=== PATIENT | male | born 1970 | race Two or more races ===

== ENCOUNTER 2018-11-18 11:19 | Emergency (ER) | payer SELFPAY ==
[~2018-11-18] VITALS: Ht 165.1 cm; Wt 100.0 kg
[2018-11-18] MEDS ORDERED: MORPHINE SULFATE 4 MG/ML CPJ (NOT FOR IM USE) IV ONE ×4 (14:15→19:45)
[2018-11-18] MEDS ORDERED: SODIUM CHLORIDE 0.9% 1,000 ML IV ONE (14:45)
[2018-11-18] MEDS ORDERED: PROPOFOL 200MG/20ML VIAL IV ONE ×2 (16:00→16:45)
[2018-11-18] MEDS ORDERED: KETAMINE HCL 50 MG/ML 10ML IV ONE (16:00)
[2018-11-18 20:22] VITALS: BP 153/98
== END 2018-11-18 19:40 | disposition short-term general hospital (02) ==
LOC: ER 11:19
DX: S43.014A Anterior dislocation of right humerus, initial encounter (principal); Z88.0 Allergy status to penicillin; W18.2XXA Fall in (into) shower or empty bathtub, initial encounter; Y93.89 Activity, other specified; Y92.89 Other specified places as the place of occurrence of the external cause; Y99.8 Other external cause status
CPT/HCPCS: 23665; 73030; 96374; 96375; 96376; 99285; J2270; J2704; J3490; J7030; L3670